=== PATIENT | female | born 1990 | race African-American/Black ===

== ENCOUNTER 2022-07-28 15:26 | Emergency (ER) | payer BC ==
[~2022-07-28] VITALS: Ht 170.2 cm; Wt 95.0 kg
[2022-07-28 15:31] VITALS: BP 130/91
[2022-07-28] MEDS ORDERED: PREDNISONE 20MG TABLET PO ONE (16:00)
[2022-07-28] MEDS ORDERED: ALBUTEROL (0.083%) 2.5MG/3ML NEB HHN ONE (16:00)
[2022-07-28] MEDS ORDERED: ALBU18HF2 IH (16:56)
[2022-07-28] MEDS ORDERED: P50 MT (16:56)
[2022-07-28] MEDS ORDERED: ALBU05 NEB (17:42)
== END 2022-07-28 17:09 | disposition home or self-care (01) ==
LOC: ER 16:10
DX: J45.901 Unspecified asthma with (acute) exacerbation (principal); Z20.822 Contact with and (suspected) exposure to COVID-19
CPT/HCPCS: 81025; 87426; 94640; 99283; C9803; J7512; Z7610